=== PATIENT | female | born 1945 | race Caucasian/White ===

== ENCOUNTER → 2023-09-13 10:16 | Outpatient (REF) | payer OTHER, SELFPAY | LOC: RAD 10:16 | PROVIDERS: ATTENDING PHYSICIAN Family Medicine | DX: R74.8 Abnormal levels of other serum enzymes (principal) | CPT/HCPCS: 78306; A9503 ==

== ENCOUNTER 2023-10-27 21:31 | Inpatient (IN) | payer OTHER, SELFPAY ==
[2023-10-27 19:13] VITALS: BP 174/95; BMI 27.9
[2023-10-27 19:58] VITALS: BP 155/119
[2023-10-27 20:24] VITALS: BP 140/100
--- NOTE | 2023-10-27 20:45 | ED.GENMED ---
History of Present Illness
General
Chief Complaint: Breathing Problem
Source: patient
Time Seen by Provider: 10/27/23 19:56
Travel History
Have you had any contact with someone who has COVID-19?: No
Do you have any symptoms of coronavirus? Fever > 100 degrees, chills, cough, shortness of breath, sore throat, loss of taste or smell, muscle aches, or headache?: No
History of Present Illness
History of Present Illness:
78-year-old female with past medical history of hypertension, hyperlipidemia, newly diagnosed atrial fibrillation presenting to the emergency department by request of the primary care physician after patient has been experiencing increased shortness
of breath, exertional dyspnea, palpitations despite being started on metoprolol and Eliquis as an outpatient a couple of weeks ago. Patient has yet to be seen by cardiology noting she has an appointment scheduled for November 13. 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 Primary care physician reported that on labs done as an outpatient today patient had a BNP of greater than 8000
and a acute kidney injury with her creatinine at 1.6.
Past History
Past History
ED Past Medical History: Arrthythmia, HTN, Hypercholesterolemia and Hypothyroidism
ED Past Surgical History: None
Social History
Tobacco: Non-smoker
Alcohol: None
Drug: None
Personal:
Living: with family
Review of Systems
Review of Systems
All Other Systems: ROS reviewed and negative except as documented in HPI and ROS
Phy Exam
Physical Exam
Physical Exam:
GENERAL: Alert , in no apparent distress
EYE: clear conjunctiva
NECK: Supple
ENT: o/p clr, mmm.
CARDIAC: Irregularly irregular, tachycardic
LUNGS: Clear breath sounds bilaterally, no acute respiratory distress,
ABDOMEN: Soft, without focal tenderness, no r/g, no cvat
NEUROLOGICAL: Alert and oriented
SKIN: Warm and dry, skin intact.
MUSCULOSKELETAL: Trace nonpitting ankle edema, well perfused.
PSYCH: Normal and appropriate interaction.
Scores
[id number] Score for Afib Stroke Risk
Age in Years (65=0, 65-74=1, >/=75=2): > or = 75
Sex (Female=+1): Female
Congestive Heart Failure History (Yes=+1): Yes
Hypertension History (Yes=+1): Yes
Stroke/TIA/Thromboembolism History (Yes=+2): No
Vascular Disease History (Yes=+1): No
Diabetes Mellitus (Yes=+1): No
Score: 5
Anticoagulation Recommendations: Recommend anticoagulation (as validated in nonvalvular fib)
Heart Failure Risk
Heart Failure Risk Score: Yes
History of Stroke or TIA: No
History of intubation for respiratory distress: No
Heart rate on ED arrival >/= 110: Yes
SaO2 <90% on arrival on room air: No
HR >/=110 during 3min walk test (or too ill to perform test): Yes
ECG has acute ischemic changes: No
Urea >/=12mmol/L (BUN 33.6mg/dL): Yes
Serum CO2>/=35mmol/L: No
Troponin I or T elevated to OH Level (0.4mg/dL): No
NT-proBNP >/=5,000ng/L (5,000pg/ml): Yes
HF Risk Score: 4
Admission Status: HIGH RISK 26.1% Consider SNF treatment or admission to hospital
Heart Score for Chest Pain Patients
STEMI patient?: Not applicable
Withdrawal Assessment of Alcohol
Withdrawal Assessment Completed?: Not applicable
Course
Orders/Labs/Results
Orders:
Orders
10/27/23 19:56
CR Chest - 2 Views Urgent
Comment:
Reason For Exam: CHF, SOB
10/27/23 19:57
Electrocardiogram (*1) Urgent
Reason for Study: Shortness of Breath
EKG- Treatment ONCE
10/27/23 20:21
Troponin I Urgent
10/27/23 20:29
Furosemide [Lasix] 40 mg IV NOW STA
Metoprolol [Lopressor] 5 mg IV NOW STA
10/27/23 20:54
Magnesium Urgent
10/27/23 21:14
Admit/Transfer Patient As Directed
Co-Sign Provider:
Level of Care: Inpatient admission
Assign to:: Telemetry
Physician / Group: Hospitalist
Diagnosis: Afib
Reason for Telemetry: Arrhythmia
Date to Stop Telemetry: 10/30/23
Time to Stop Telemetry: 11:00
Reason for Hospitalization: Afib, symptomatic
Expected length of stay greater than two midnights?: Yes
ELOS- Estimated Length of Stay in days: 2
I certify the patient meets the requirements for IP care: Yes
10/27/23 21:15
Code Status As Directed
Resuscitation Status: Full Code
10/27/23 21:20
Heparin Protocol- PTT Orders As Directed
PTT per Heparin protocol: -Obtain CBC and baseline PTT - if not already collected.
-Obtain PTT 6 hours from start of infusion. Then, every 6 hours until 2 consecutive
PTT's are therapeutic. Then, PTT Daily.
-With each rate change, obtain PTT every 6 hours until 2 consecutive PTT's are
therapeutic. Then, PTT Daily.
Notify MD As Directed
Notify physician if: PTT is greater than or equal to 200.
10/27/23 21:24
Echo 2D MMode Color/Doppler Routine
Reason for Study: afib, SOB
Weight As Directed
Frequency: Daily
10/27/23 21:30
Heparin 97559 Units/250 ml 25,000 units in 250 ml IV PER PROTOCOL
Weight to be used for heparin protocol in kilograms (kg):: 69
Protocol:: Cardiac Tx/Acute Coronary
PTT Goal Range to be used:: PTT 73 to 111 seconds
Order type:: Initial
INITIAL Infusion Dose (UNITS/KG/hr) & then follow protocol:: 12 units/kg/hr
Infusion Dose in UNITS/hr & then follow protocol (UNITS/hr):: 850
INFUSION RATE in mL/hr & then follow protocol (mL/hr):: 8.5
PTT less than or equal to 64 seconds:: Increase rate by 200 units/hr (+ 2 mL/hr)
PTT 64.1 to 72.9 seconds:: Increase rate by 100 units/hr (+ 1 mL/hr)
PTT 73 to 111 seconds:: Target Range. No change in rate.
PTT 111.1 to 130.9 seconds:: Decrease rate by 100 units/hr (- 1 mL/hr)
PTT 131 to 199.9 seconds:: HOLD for 1 hr. Then decrease rate by 200 units/hr (- 2 mL/hr)
PTT greater than or equal to 200 seconds:: HOLD for 2 hrs & Notify Provider. Then decrease by 200 units/hr (-
2 mL/hr)
Lab follow-up:: Each change, PTT q6h until 2 consecutive are therapeutic. Then PTT
daily.
10/27/23 21:43
Complete Blood Count/No Diff Urgent
Comment: Obtain baseline before beginning heparin infusion if not already collected
PTT Urgent
Comment: Obtain baseline before beginning heparin infusion if not already collected
10/27/23 22:00
Flush (0.9% Sodium Chloride) [Flush (Nss)] See Dose Instructions IV PER PROTOCOL
10/29/23 06:00
Complete Blood Count/No Diff Q2D
Comment: Notify MD if platelet count is <130,000 or decreases by 50% from baseline
10/30/23 11:00
DC Protocol for Telemetry ONCE
10/31/23 06:00
Complete Blood Count/No Diff Q2D
Comment: Notify MD if platelet count is <130,000 or decreases by 50% from baseline
11/02/23 06:00
Complete Blood Count/No Diff Q2D
Comment: Notify MD if platelet count is <130,000 or decreases by 50% from baseline
11/04/23 06:00
Complete Blood Count/No Diff Q2D
Comment: Notify MD if platelet count is <130,000 or decreases by 50% from baseline
11/06/23 06:00
Complete Blood Count/No Diff Q2D
Comment: Notify MD if platelet count is <130,000 or decreases by 50% from baseline
11/08/23 06:00
Complete Blood Count/No Diff Q2D
Comment: Notify MD if platelet count is <130,000 or decreases by 50% from baseline
11/10/23 06:00
Complete Blood Count/No Diff Q2D
Comment: Notify MD if platelet count is <130,000 or decreases by 50% from baseline
11/12/23 06:00
Complete Blood Count/No Diff Q2D
Comment: Notify MD if platelet count is <130,000 or decreases by 50% from baseline
Vital Signs
Initial and Last Documented VS:
Initial Vital Signs
Temp Pulse Resp BP Pulse Ox
98.2 F 75 17 174/95 97
10/27/23 19:13 10/27/23 19:13 10/27/23 19:13 10/27/23 19:13 10/27/23 19:13
Last Documented Vital Signs
Temp Pulse Resp BP Pulse Ox
98.2 F 109 20 160/90 98
10/27/23 19:13 10/27/23 21:54 10/27/23 21:54 10/27/23 21:54 10/27/23 21:54
MDM/Problems Addressed
Differential Diagnosis Includes:
Atrial fibrillation, CHF, valvular dysfunction
MDM/Problems Addressed:
78-year-old female presenting emergency department for evaluation and ultimately admission for suspected CHF likely due to newly diagnosed atrial fibrillation. Patient also has an acute kidney injury. PCP was trying to manage patient via
outpatient methods but unfortunately patient did not seem to be responding well enough to continue this treatment. Patient's heart rate during my exam was persistently between 95 bpm and as high as 125 bpm. She is otherwise well-appearing and in
no acute distress. 40 mg Lasix IV and 5 mg of Lopressor IV were ordered for rate control. Will admit to hospitalist team with plan for cardiology consultation
Chronic conditions affecting care: Arrhythmia
Acute Exacerbation and/or Progression of Chronic Illness: Arrhythmia
*Radiology
Radiology exam reviewed: preliminary read by ED provider (Trace left pleural effusion)
*Pulse Oximetry
Patient hypoxic: no
*Biometrics Experimentalist Interpretation
Rate: tachycardiac
Rhythm: a-fib
*Critical Care Note
Total Time (30-74mins, 75-104mins- exclusive of procedures): Not Applicable
Patient Management
Discussion with other providers: Hospitalist
Escalation/DeEscalation of care consider admission/obs:
Hospitalist is aware and accepts patient for continued evaluation and treatment
ED Attending Note
-
Portions of this chart may have been created with voice recognition software.� Occasional wrong word or��sound alike� substitutions may have occurred due to the inherent limitations of voice recognition software.
Discharge Plan
Departure
Patient Disposition: Admit
Date of Disposition: 10/27/23
Time of Disposition: 20:45
Presentation/result/management discussed w/ accepting MD/DO: Hospitalist
Discharge Problem:
CHF (congestive heart failure), Atrial fibrillation, MIKE (acute kidney injury)
Interventions
Interventions:
*Risk Screen - Suicide Last Done: 10/27/23 19:13
*General Assessment Last Done: 10/27/23 19:13
*Neglect/Abuse Screening Last Done: 10/27/23 19:13
ED- Fall Risk Assessment Last Done: 10/27/23 19:50
*ED COVID-19 Vaccine History Last Done: 10/27/23 19:50
ED- Cardiac Assessment Last Done: 10/27/23 19:50
ED- Pulmonary Assessment Last Done: 10/27/23 19:50
[2023-10-27 20:50] LABS: Troponin I 0.013 ng/ml
[2023-10-27] MEDS: LASIX 40 MG IV (20:57)
[2023-10-27] MEDS: LOPRESSOR 5 MG IV (20:59)
[2023-10-27 21:17] LABS: Magnesium 1.9 mg/dl (1.6-2.3)
--- NOTE | 2023-10-27 21:30 | HPS.HSE ---
Family Physician
-
Family Physician: Sav Valle
Chief Complaint
-
dyspnea
History of Present Illness
78yo F with recent diagnosis of Afib, started Eliquis and Toprol 25mg BID by PCP on 10/24/23 came with persistent SOB. She started to experience symptoms approximately 2 weeks ago. Patient is using alcohol daily - 2 shots of scotch.
Medical History
Past Medical History
Past Medical History: Reports Other
Additional Past Medical History:
See HPI
Past Surgical History: Reports None
Social History
Tobacco: Non-smoker
Alcohol: Daily
Drug: None
Family History
Family History: Not pertinent
Allergies / Home Medications
Allergies reflects when Allergies were last updated in [facility] [facility] [employer] [facility]
Home Medications with original date entered in [facility] [employer] [facility] [employer].
Allergy/Medication List:
Allergies
Allergy/AdvReac Type Severity Reaction Status Date / Time
No Known Allergies Allergy Unverified 10/27/23 19:17
Home Medications
Lactobacillus rhamnosus GG 10 billion cell capsule (Culturelle) 1 cap PO DAILY 10/27/23
apixaban 5 mg tablet 5 mg PO BID 10/27/23
metoprolol succinate 25 mg tablet,extended release 24 hr 25 mg PO BID 10/27/23
Review of Systems
-
A 12 point ROS was completed and negative except as noted: Yes
Respiratory: Reports See HPI
Physical Exam
Vital Signs
Vital Signs
Temp Pulse Resp BP Pulse Ox
98.2 F 105 18 170/100 96
10/27/23 19:13 10/27/23 20:59 10/27/23 20:24 10/27/23 20:59 10/27/23 20:24
Physical Exam
General: Well Developed, Well Nourished and No Apparent Distress
HEENT: NormoCephalic, Anicteric and Moist mucous membranes
Respiratory: Clear; No Wheezes, Rales or Crackles
Cardiac: S1/S2 and Irregular Rhythm
GI: Soft, Non Tender and Non Distended
Musculoskeletal: No Clubbing, No Cyanosis and No Edema
Skin: Warm; No Dry or Rash
Neuro: Awake, Alert, Oriented and AO x 3
Hematologic/Lymphatic: No Lymphadenopathy
Psych: Calm
Laboratory Results
-
Laboratory Results
Troponin I 0.013 ng/ml 10/27/23 20:21
Data Reviewed
-
Diagnostic Radiology: Report Reviewed by me
Impression/Plan
-
A/P:
#dyspnea 2/2 Afib, persistent with poor HR control r/o CHF
#Minimal b/l pleural effusions most likely 2/2 Afib and decreased CO
Lopressor PO scheduled and IV PRN
Check TSH
Telemetry
Cardiology cosult
Anticoagulation
Serial trop
Echo, lasix given in ED, use PRN since no significant over signs of CHF in ED
Daily weight
ProBNP 8080
#Daily alcohol use, unclear if Hx of substance use d/o
Advised to stop using alcohol
watch for withdrawal
#MIKE vs CKD
follow Cr
Heparin drip while establishing baseline. Possible 2/2 low CO
#Elevated ddimer
Unclear cause
US LE will be reasonable, if neg - would do V/Q vs CTA chest depending on further Cr
Already on anticoagulation
DVT ppx - on heparin drip
This encounter required high level of medical decision making due to complexity of PMHX and patient presenting symptoms
[2023-10-27 21:49] LABS: Hematocrit 35.5 % (37.0-47.0); Hemoglobin 12.1 g/dL (12.0-16.0); Mean Corp Hgb Conc. 34.1 g/dL (33.0-37.0); Mean Corpuscular Hgb 31.8 pg (27.0-31.0); Mean Corpuscular Volume 93.4 fL (81.0-99.0); Mean Platelet Volume 10.8 fL (7.4-10.4); Platelet Count 251 10^3/uL (130-400); Red Cell Dist. Width 14.4 % (11.5-14.5); White Blood Cell Count 7.5 10^3/uL (4.8-10.8)
[2023-10-27 21:54] VITALS: BP 160/90
[2023-10-27 22:00] LABS: APTT 35.8 Sec (23.4-35.0)
[2023-10-27] MEDS: HEPARIN 25000 UNITS/250 ML IV (22:43)
[2023-10-27 23:10] VITALS: BP 178/127; BMI 26.8
[2023-10-27 23:30] VITALS: BMI 27.9
[2023-10-28] VITALS (14 sets, daily range): BP systolic 95–168; BP diastolic 68–129; BMI 26.0
[2023-10-28] MEDS: APRESOLINE 10 MG IV (01:09)
--- NOTE | 2023-10-28 01:25 | PTCARENOTE ---
Pt rec'd from ED on stretcher just after 11pm. Awake,alert ambulating freq to bathroom to void post Lasix. At rest ht rate 90 to 130 afib with activity. B/p elevated rechecked several times on both arms including manual. home RX list updated. Pt
reported not having taken her Valsartan tonight. [facility] [employer] contacted for elevated b/p. Hydralazine given. labs redrawn after labor gang supervisor called stating ED labs were hemolyzed.
pt given box lunch. resting in bed with call cruz within reach.
[2023-10-28 01:49] LABS: Troponin I 0.018 ng/ml
[2023-10-28 02:04] LABS: ALT (SGPT) 72 U/L (0-35); AST (SGOT) 73 U/L (14-36); Alkaline Phosphatase 151 U/L (38-126); Blood Urea Nitrogen 39 mg/dl (7-17); Calcium 8.6 mg/dl (8.4-10.2); Carbon Dioxide 20 mmol/L (22-30); Chloride 106 mmol/L (98-107); Estimated Creatinine Clearance 24 ml/min; Glucose 111 mg/dl (70-99); Magnesium 1.9 mg/dl (1.6-2.3); Potassium 3.9 mmol/L (3.5-5.1); Sodium 136 mmol/L (135-145); Total Protein 6.7 g/dl (6.3-8.2); eGFR 30.13
[2023-10-28 02:09] LABS: TSH 1.42 uIU/ml (0.47-4.68)
[2023-10-28 05:25] LABS: % Basophils 1.2 % (0-2); % Eosinophils 3.3 % (0-6); % Immature Granulocytes 0.3 % (0-0.5); % Lymphocytes 33.6 % (20.5-51.1); % Monocytes 10.9 % (1.7-9.3); % Neutrophils 50.7 % (42.2-75.2); Absolute Basophils 0.1 10^3/uL (0-0.2); Absolute Eosinophils 0.3 10^3/uL (0-0.7); Absolute Neutrophils 4.6 10^3/uL (1.4-6.5); Hematocrit 38.8 % (37.0-47.0); Hemoglobin 13.2 g/dL (12.0-16.0); Mean Corpuscular Hgb 31.2 pg (27.0-31.0); Mean Corpuscular Volume 91.7 fL (81.0-99.0); Mean Platelet Volume 10.4 fL (7.4-10.4); Nucleated Red Blood Cells % 0 %; Platelet Count 289 10^3/uL (130-400); Red Blood Cell Count 4.23 10^6/uL (4.20-5.40); Red Cell Dist. Width 14.6 % (11.5-14.5); White Blood Cell Count 9.1 10^3/uL (4.8-10.8)
--- NOTE | 2023-10-28 05:26 | PTCARENOTE ---
Pt up Q 1 hr to void,down 2 kg. b/p remains elevated despite Hydralazine. b/p taken on both arms both upper arm and lower forearm.
--- NOTE | 2023-10-28 05:32 | PTCARENOTE ---
0800 AM dose of Toprol given for elevated b/p
[2023-10-28] MEDS: LOPRESSOR 50 MG PO (05:39)
[2023-10-28 05:45] LABS: APTT 40.4 Sec (23.4-35.0)
[2023-10-28 05:49] LABS: ALT (SGPT) 71 U/L (0-35); AST (SGOT) 69 U/L (14-36); Albumin 4.1 g/dl (3.5-5.0); Alkaline Phosphatase 184 U/L (38-126); Blood Urea Nitrogen 46 mg/dl (7-17); Calcium 9.2 mg/dl (8.4-10.2); Carbon Dioxide 20 mmol/L (22-30); Chloride 103 mmol/L (98-107); Direct Bilirubin 0.1 mg/dl (0.0-0.4); Estimated Creatinine Clearance 21 ml/min; Glucose 106 mg/dl (70-99); Magnesium 1.9 mg/dl (1.6-2.3); Potassium 3.8 mmol/L (3.5-5.1); Sodium 136 mmol/L (135-145); eGFR 30.13
--- NOTE | 2023-10-28 07:42 | CON.CAR ---
Addendum entered and electronically signed by Wilmer Felipe MD 10/28/23 09:42:
I saw and examined the patient.
The Gis Technician's note was reviewed and I agree with the note.
Comment: Briefly, 78-year-old woman newly diagnosed atrial fibrillation who presents following several weeks of progressive dyspnea on exertion and worsening peripheral edema consistent with decompensated heart failure
Plan for IV diuresis to improve her volume status
Rate control of atrial fibrillation for now
Currently on heparin for cardioembolic prophylaxis, was previously on Eliquis as an outpatient
When volume status is improved would consider VON/direct-current cardioversion to restore sinus rhythm
Outpatient ARB has been on hold, given MIKE on CKD would wait for renal function returned to baseline prior to resuming or adding additional GDMT
Original Note:
Consultation
Consultation Request
Date/Time Consultation Requested: 10/27/2023 at 2315
Date/Time Consultation Performed: 10/28/2023 at 0730
Requesting Provider: Dr. Pina
Performing Provider: Dr. Felipe
Reason for Consultation: Afib, CHF
Medical History
-
History of Present Illness:
HPI: Kenisha is an 78 year old female with PMH of hypertension, hyperlipidemia, hypothyroidism, arthritis, and recently diagnosed atrial fibrillation. She presented to [facility] for evaluation of progressively worsening SOB. Symptoms started at the
beginning of the month when she started to notice more SOB, mostly with exertion. She was seen by her PCP on 10/23 and was noted to be in new afib. She was started on anticoagulation with Eliquis and was started on Toprol 25mg BID for rate control.
She then followed up a few days later and was arranged for labwork including D-dimer and proBNP. ProBNP returned elevated at 8080 and she was told to come to the ER for further workup and IV diuresis. D-dimer was also elevated at 0.92. In ER, she
had evidence of volume overload and was started on IV lasix. She reports good urine output overnight with this and her weight has come down 5lbs overnight. She reports some improvement in her breathing this AM. She remains in Afib on review of
telemetry with HRs in the 90s.
PMH:
Newly diagnosed atrial fibrillation
Hypertension
Hyperlipidemia
Hypothyroidism
Arthritis
Anxiety
Past Medical History
Past Medical History: Other (In HPI)
Past Surgical History: None
Social History
Tobacco: Former Smoker
Alcohol: Daily
Drug: None
Employment: Retired
Family History
Family History: Reviewed & Not Pertinent
Allergies / Home Medications
Allergy/AdvReac Type Severity Reaction Status Date / Time
Latex, Natural Rubber Allergy Mild Itching Verified 10/27/23 23:47
Medication Instructions Recorded Confirmed Type
Lactobacillus rhamnosus GG 10 1 cap PO DAILY 10/27/23 10/27/23 History
billion cell capsule (Culturelle)
apixaban 5 mg tablet 5 mg PO BID 10/27/23 10/27/23 History
metoprolol succinate 25 mg 25 mg PO BID 10/27/23 10/27/23 History
tablet,extended release 24 hr
sertraline 25 mg tablet (Zoloft) 25 mg PO DAILY 10/27/23 10/27/23 History
valsartan 80 mg tablet 80 mg PO HS 10/28/23 10/28/23 History
Review of Systems
-
History Source: Patient
All other systems: Negative unless noted
Physical Exam
Vital Signs
Temp Pulse Resp BP Pulse Ox
97.8 F 105 20 165/117 97
10/28/23 04:53 10/28/23 05:15 10/28/23 04:53 10/28/23 04:54 10/28/23 04:53
Lab Results
10/28/23 05:06
10/28/23 05:06
Troponin I 0.018 ng/ml D 10/28/23 01:04
Physical Exam
General: Well Developed, Well Nourished and No Apparent Distress
HEENT: Normocephalic, Anicteric and Moist Mucous Membranes
Respiratory: Clear and Non Labored Respirations
Cardiac: S1/S2 and Irregular Rhythm
Musculoskeletal: No Clubbing, No Cyanosis and Edema
Skin: Warm and Dry
Neuro: AO x 3 and Nonfocal/Grossly Intact
Psych: Calm
Impression / Plan
-
PCP: Dr. Valle
Assurance Senior Manager: Scheduled to see Dr. Mack 11/13.
Impression:
Presented with SOB
Acute HFpEF
Persistent atrial fibrillation
Elevated D-dimer
Hypertension
Hypothyroidism
Hyperlipidemia
Arthritis
Anxiety
Daily ETOH
Echo 05/31/2022: EF 50%, mild MR
Echo 10/28/2023: Study pending
Plan:
-She has had SOB since the beginning of the month and was found to be in new afib by PCP 10/24/2023. Remains in afib at this time on review of telemetry.
-Started on Eliquis 5mg BID for anticoagulation which she has been compliant with. Currently on IV heparin while working up elevated D-dimer. Eventually transition back to Eliquis.
-Continue Toprol 25mg BID for rate control. Follow HRs for now and dose may need to be increased.
-BPs elevated with BP currently 153/113. OP valsartan on hold due to MIKE. Continue Toprol and will give a dose of hydralazine.
-Creat 1.7 this AM. Prior baseline as OP in 08/2023 was 1.17.
-Also with acute heart failure. Will continue diuresis with IV Lasix 40mg daily. Weight down 5lbs overnight, down to 141lbs 10/27.
-Follow daily weights, I&Os. Not on diuretic prior to this admission.
-Echo pending 10/27 to reassess EF. In 2021 EF was low normal at 50%.
-CHF education
-Troponin negative x 2. Check EKG. No chest pain.
-Elevated D-dimer noted. LE US pending. To consider VQ scan versus CT per primary service.
-TSH 1.42. As OP, is on levothyroxine 112mcg daily per PCP note, would restart.
-Discussed daily ETOH use and importance of cutting back/abstaining.
-As OP is on lipitor 80mg daily, follow LFTs and resume as able.
HPI: Kenisha is an 78 year old female with PMH of hypertension, hyperlipidemia, arthritis, and recently diagnosed paroxysmal atrial fibrillation. She presented to [facility] for evaluation of progressively worsening SOB. Symptoms started at the beginning of
the month when she started to notice more SOB, mostly with exertion. She was seen by her PCP on 10/23 and was noted to be in new afib. She was started on anticoagulation with Eliquis and was started on Toprol 25mg BID for rate control. She then
followed up a few days later and was arranged for labwork including D-dimer and proBNP. ProBNP returned elevated at 8080 and she was told to come to the ER for further workup and IV diuresis. D-dimer was also elevated at 0.92. In ER, she had
evidence of volume overload and was started on IV lasix. She reports good urine output overnight with this and her weight has come down 5lbs overnight. She reports some improvement in her breathing this AM. She remains in Afib on review of telemetry
with HRs in the 90s.
Data Reviewed
-
Radiology: Report Reviewed by me
Labs: Labs Reviewed by me
Old Records: Reviewed
[2023-10-28] MEDS: TOPROL XL 25 MG PO ×2 (08:50→19:42)
[2023-10-28] MEDS: FOLVITE 1 MG PO (08:55)
[2023-10-28] MEDS: VITAMIN B1 100 MG PO (08:55)
[2023-10-28] MEDS: APRESOLINE 5 MG IV (08:56)
[2023-10-28] MEDS: LASIX 40 MG IV (09:31)
--- NOTE | 2023-10-28 10:24 | CM ---
Chart reviewed. Patient is independent of ADLS, lives alone in a 2 STH, 0 CAITY, 0 DME. Patient is not current with [facility] and is not interested. Plan is for the patient to return home. CM to follow
[2023-10-28] MEDS: APRESOLINE PO (11:00)
[2023-10-28] MEDS: TYLENOL 650 MG PO (11:47)
--- NOTE | 2023-10-28 11:52 | W.PN.HOSP.TC ---
Today's Communication/Plan
-
Monitor vital signs see plan
IV Lasix
Metoprolol
Continue with heparin drip
trend trops
Assessment / Plan
Assessment / Plan
General: Well Developed, Well Nourished and No Apparent Distress
HEENT: NormoCephalic, Anicteric and Moist mucous membranes
Respiratory: Clear; No Wheezes, Rales or Crackles
Cardiac: S1/S2 and Irregular Rhythm
GI: Soft, Non Tender and Non Distended
Musculoskeletal: No Clubbing, No Cyanosis and No Edema
Skin: Warm; No Dry or Rash
Neuro: Awake, Alert, Oriented and AO x 3
Hematologic/Lymphatic: No Lymphadenopathy
Psych: Calm
dyspnea 2/2 Afib and acute congestive heart failure with reduced ejection fraction
A-fib recently diagnosed outpatient
Continue with IV Lasix, proBNP elevated
Echocardiogram with EF 35 to 40%
TSH wnl
cw lopressor
trend trop
Holding losartan given elevated creatinine, reports no history of CKD
cw heparin gtt; was on eliquis Sales Management Intern
venous US pending
#Daily alcohol use, unclear if Hx of substance use d/o
Advised to stop using alcohol
watch for withdrawal
#renal insufficiency, reports no history of CKD
Monitor; hold valsartan for now
follow Cr; check Ua
Mild elevated LFTs suspect likely secondary to congestion
Monitor
#Elevated ddimer
Unclear cause
US LE will be reasonable, if neg - would do V/Q vs CTA chest depending on further Cr
Already on anticoagulation
DVT ppx - on heparin drip
Anticipated Discharge: > 48 hours
Subjective/Interval History
-
Date of Service: October 28, 2023
denies pain
Objective Data
-
Labs:
Laboratory Results
10/28/23 10/28/2324
01:04 05:06 05:11
WBC 9.1
Hgb 13.2
Hct 38.8
Plt Count 289
APTT 40.4 H
Sodium 136 136
Potassium 3.9 3.8
Chloride 106 103
Carbon Dioxide 20 L 20 L
BUN 39 H 46 H
Creatinine 1.7 H 1.7 H
Glucose 111 H 106 H
Calcium 8.6 9.2
Total Bilirubin 1.0 1.0
AST 73 H 69 H
ALT 72 H 71 H
Alkaline Phosphatase 151 H 184 H
10/28/23
13:15
WBC
Hgb
Hct
Plt Count
APTT Pending
Sodium
Potassium
Chloride
Carbon Dioxide
BUN
Creatinine
Glucose
Calcium
Total Bilirubin
AST
ALT
Alkaline Phosphatase
Vital Signs:
Vital Signs
Temp Pulse Resp BP Pulse Ox
97.9 F 91 20 153/113 96
10/28/23 11:46 10/28/23 07:44 10/28/23 11:46 10/28/23 07:42 10/28/23 11:46
I&O
10/27/23 10/28/23 10/29/23
06:59 06:59 06:59
Intake Total 240 / 240
Output Total 2300 / 2300
Balance -2059 / -2059
[2023-10-28 13:54] LABS: APTT 63.3 Sec (23.4-35.0)
[2023-10-28 14:03] LABS: Troponin I 0.017 ng/ml
[2023-10-28] MEDS: APRESOLINE 25 MG PO ×2 (17:05→22:01)
[2023-10-28 17:19] LABS: Urine Albumin Negative (Neg - Trace); Urine Bilirubin Negative (Negative); Urine Character Clear (Clear); Urine Color Yellow; Urine Glucose Negative (Negative); Urine Ketone Negative (Negative); Urine Leukocyte Negative (Negative); Urine Nitrite Negative (Negative); Urine Occult Blood Negative (Negative); Urine Specific Gravity 1.005 (<1.030); Urine Urobilinogen Negative (Neg - 1+)
[2023-10-28 20:57] LABS: APTT 166.1 Sec (23.4-35.0)
[2023-10-28] MEDS: HEPARIN 25000 UNITS/250 ML IV (22:00)
[2023-10-29] VITALS (8 sets, daily range): BP systolic 95–147; BP diastolic 75–98; BMI 25.5
[2023-10-29 04:45] LABS: ALT (SGPT) 64 U/L (0-35); AST (SGOT) 62 U/L (14-36); Albumin 3.7 g/dl (3.5-5.0); Alkaline Phosphatase 151 U/L (38-126); Blood Urea Nitrogen 40 mg/dl (7-17); Calcium 8.4 mg/dl (8.4-10.2); Carbon Dioxide 23 mmol/L (22-30); Chloride 104 mmol/L (98-107); Estimated Creatinine Clearance 21 ml/min; Glucose 100 mg/dl (70-99); Potassium 3.8 mmol/L (3.5-5.1); Sodium 134 mmol/L (135-145); Total Bilirubin 0.6 mg/dl (0.2-1.3); Total Protein 6.4 g/dl (6.3-8.2); eGFR 30.13
[2023-10-29 04:49] LABS: % Eosinophils 4.2 % (0-6); % Immature Granulocytes 0.4 % (0-0.5); % Lymphocytes 38.5 % (20.5-51.1); % Monocytes 10.7 % (1.7-9.3); % Neutrophils 45.2 % (42.2-75.2); Absolute Basophils 0.1 10^3/uL (0-0.2); Absolute Eosinophils 0.4 10^3/uL (0-0.7); Absolute Lymphocytes 3.2 10^3/uL (1.2-3.4); Absolute Monocytes 0.9 10^3/uL (0.1-0.6); Absolute Neutrophils 3.8 10^3/uL (1.4-6.5); Hematocrit 39.7 % (37.0-47.0); Hemoglobin 13.3 g/dL (12.0-16.0); Mean Corp Hgb Conc. 33.5 g/dL (33.0-37.0); Mean Corpuscular Hgb 30.8 pg (27.0-31.0); Mean Corpuscular Volume 91.9 fL (81.0-99.0); Mean Platelet Volume 10.5 fL (7.4-10.4); Nucleated Red Blood Cells % 0 %; Platelet Count 287 10^3/uL (130-400); Red Blood Cell Count 4.32 10^6/uL (4.20-5.40); Red Cell Dist. Width 14.6 % (11.5-14.5); White Blood Cell Count 8.3 10^3/uL (4.8-10.8)
[2023-10-29] MEDS: SYNTHROID 112 MCG PO (05:33)
[2023-10-29] MEDS: VITAMIN B1 100 MG PO (08:02)
[2023-10-29] MEDS: FOLVITE 1 MG PO (08:03)
[2023-10-29] MEDS: APRESOLINE 25 MG PO (08:03)
[2023-10-29] MEDS: TOPROL XL 25 MG PO (08:03)
[2023-10-29] MEDS: LASIX 40 MG IV (08:04)
--- NOTE | 2023-10-29 08:53 | PTCARENOTE ---
Assumed care of pt from night RN. Pt received awake and alert, Ox3. VSS, CM shows AF 80-90's at rest, but up to 140 with exertion. POX 94% on RA. Heparin infusing at 850 u/hr through LFA, next PTT due at 1200. She denies any pain or discomfort.
Plan is VON/CV on Tuesday.
--- NOTE | 2023-10-29 10:10 | W.PN.CARDCBS ---
Addendum entered and electronically signed by Wilmer Felipe MD 10/29/23 11:32:
I saw and examined the patient.
The Petroleum Inspector Supervisor's note was reviewed and I agree with the note.
Comment: Briefly, 78-year-old woman presenting with new atrial fibrillation with rapid ventricular response and decompensated heart failure
Transthoracic echocardiogram here showed mild to moderately reduced ejection fraction
Volume status is improved with IV diuretics, would continue and follow daily weights and creatinine
Unfortunately due to elevated creatinine we are limited in GDMT that we can offer
Increase Toprol dosing for better heart rate control in A-fib
Plan to uptitrate hydralazine for better blood pressure control/ afterload reduction
Okay to transition from IV heparin back to oral Eliquis from my standpoint
Consider VON/direct-current cardioversion on Monday 10/30
Original Note:
Today's Communication / Plan
-
Continue Toprol 25mg BID
Hydralazine changed to 50mg BID.
Follow creat
Resume Eliquis 2.5mg BID tonight.
May consider VON/CV Tuesday.
Impression / Plan
-
PCP: Dr. Valle
Failure Analysis Technician: Scheduled to see Dr. Mack 11/13.
Impression:
Presented with SOB
Acute HFmrEF
Persistent atrial fibrillation
Elevated D-dimer
Hypertension
Hypothyroidism
Hyperlipidemia
Arthritis
Anxiety
Daily ETOH
Echo 05/31/2022: EF 50%, mild MR
Echo 10/28/2023: EF 35-40%, global hypokinesis, mild to moderate MR, mild to moderate TR, estimated PAP 33 mmHg, severely dilated R atrium
Plan:
-She has had SOB since the beginning of the month and was found to be in new afib by PCP 10/24/2023. Remains in afib at this time on review of telemetry.
-Started on Eliquis 5mg BID for anticoagulation which she has been compliant with. Started on IV heparin on admission, will transition back to Eliquis 2.5mg BID (Age 78, Creat 1.7).
-Continue Toprol for rate control at 25mg BID. HRs remain somewhat elevated. Follow HR with ambulating and may need uptitration.
-Consider VON/CV Tuesday, 10/30.
-OP valsartan on hold due to MIKE. BP improving with Hydralazine 25mg TID, will transition to 50mg BID
-Creat remains elevated at 1.7 this AM. Prior baseline as OP in 08/2023 was 1.17.
-Diuresing with IV lasix for acute heart failure. Volume status improving and breathing improved, likely can transition to PO lasix in AM. Weight down 7lbs this admission to 139lbs on 10/28.
-Follow daily weights, I&Os. Not on diuretic prior to this admission.
-Echo 10/27 noted EF 35-40% with mild to moderate MR. On Toprol and hydralazine for now. Consider addition of nitrate.
-Elevated D-dimer noted. LE US negative for DVT. Considering VQ scan per primary service.
-Discussed daily ETOH use and importance of cutting back/abstaining.
HPI: Kenisha is an 78 year old female with PMH of hypertension, hyperlipidemia, arthritis, and recently diagnosed paroxysmal atrial fibrillation. She presented to [facility] for evaluation of progressively worsening SOB. Symptoms started at the beginning of
the month when she started to notice more SOB, mostly with exertion. She was seen by her PCP on 10/23 and was noted to be in new afib. She was started on anticoagulation with Eliquis and was started on Toprol 25mg BID for rate control. She then
followed up a few days later and was arranged for labwork including D-dimer and proBNP. ProBNP returned elevated at 8080 and she was told to come to the ER for further workup and IV diuresis. D-dimer was also elevated at 0.92. In ER, she had
evidence of volume overload and was started on IV lasix. She reports good urine output overnight with this and her weight has come down 5lbs overnight. She reports some improvement in her breathing this AM. She remains in Afib on review of telemetry
with HRs in the 90s.
Progress Note - Failure Analysis Technician
Subjective
Date of Service: October 29, 2023
Feeling well. Breathing improving.
Objective
Labs:
10/29/23 04:07
10/29/23 04:07
Labs
Hgb 13.3 g/dL (12.0-16.0) 10/29/23 04:07
Hct 39.7 % (37.0-47.0) 10/29/23 04:07
Plt Count 287 10^3/uL (130-400) 10/29/23 04:07
APTT 140.0 Sec (23.4-35.0) H 10/29/23 04:07
Sodium 134 mmol/L (135-145) L 10/29/23 04:07
Potassium 3.8 mmol/L (3.5-5.1) 10/29/23 04:07
BUN 40 mg/dl (7-17) H 10/29/23 04:07
Creatinine 1.7 mg/dL (0.6-1.0) H 10/29/23 04:07
Glucose 100 mg/dl (70-99) H 10/29/23 04:07
Troponins
10/27/23 10/28/23 10/28/23
20:21 01:04 13:33
Troponin I 0.013 0.018 D 0.017
10/28/23
17:30
Troponin I Cancelled
Vital Signs and I&O:
Vital Signs
Temp Pulse Resp BP Pulse Ox
97.4 F 94 18 136/92 94
10/29/23 07:34 10/29/23 08:03 10/29/23 07:34 10/29/23 08:03 10/29/23 08:45
Vital Signs
Temp Pulse Resp BP Pulse Ox
97.4 F 94 18 136/92 94
10/29/23 07:34 10/29/23 08:03 10/29/23 07:34 10/29/23 08:03 10/29/23 08:45
Intake & Output
10/27/23 10/28/23 10/29/23 10/30/23
06:59 06:59 06:59 06:59
Intake Total 240 / 240
Output Total 2300 / 2300 800 / 800
Balance -2059 / -2059 -800 / -800
Physical Exam
Physical Exam
GEN: No distress, awake, alert, oriented x3
HEENT: supple, anicteric, mmm
LUNGS: CTA b/l, no wheezes/rales
CV: irreg, S1/S2, no murmur
EXT: No clubbing, cyanosis, or edema
NEURO: Gross non-focal
SKIN: Warm, dry, no rash
[2023-10-29 12:43] LABS: APTT 56.1 Sec (23.4-35.0)
--- NOTE | 2023-10-29 14:14 | W.PN.HOSP.TC ---
Today's Communication/Plan
-
Monitor vital signs see plan
Continue metoprolol, hydralazine
Eliquis
Monitor renal function
VQ scan
Daughter updated at bedside
Assessment / Plan
Assessment / Plan
General: Well Developed, Well Nourished and No Apparent Distress
HEENT: NormoCephalic, Anicteric and Moist mucous membranes
Respiratory: Clear; No Wheezes, Rales or Crackles
Cardiac: S1/S2 and Irregular Rhythm
GI: Soft, Non Tender and Non Distended
Musculoskeletal: No Edema
Neuro: Awake, Alert, Oriented and AO x 3
Psych: Calm
dyspnea 2/2 Afib and acute congestive heart failure with reduced ejection fraction
A-fib recently diagnosed outpatient
Continue with IV Lasix, proBNP elevated
Echocardiogram with EF 35 to 40%; further workup is limited given elevated creatinine.
Continue with Toprol, uptitrate hydralazine
TSH wnl
Holding losartan given elevated creatinine, reports no history of CKD
No plan for any cardiac intervention, heparin switched to Eliquis
venous US negative
possible cardioversion tuesday
#Daily alcohol use, unclear if Hx of substance use d/o
Advised to stop using alcohol
watch for withdrawal
#renal insufficiency,suspect CKD
Per patient she does not know her baseline creatinine however does report that her PCP told her that it is getting higher
Monitor; hold valsartan for now
follow Cr; Ua negative for UTI
Mild elevated LFTs suspect likely secondary to congestion
Monitor
#Elevated ddimer
Unclear cause; no chest pain
US LE will be reasonable, if neg - would do V/Q vs CTA chest depending on further Cr
Already on anticoagulation
DVT ppx - eliquis
I spent a total of 53 minutes with the patient or on the floor. More than 50% of this time involved counseling and coordination of care.
Anticipated Discharge: > 48 hours
Subjective/Interval History
-
Date of Service: October 29, 2023
denies pain
Objective Data
-
Labs:
Laboratory Results
10/29/23 10/29/23
04:07 12:23
WBC 8.3
Hgb 13.3
Hct 39.7
Plt Count 287
APTT 140.0 H 56.1 H
Sodium 134 L
Potassium 3.8
Chloride 104
Carbon Dioxide 23
BUN 40 H
Creatinine 1.7 H
Glucose 100 H
Calcium 8.4
Total Bilirubin 0.6
AST 62 H
ALT 64 H
Alkaline Phosphatase 151 H
Vital Signs:
Vital Signs
Temp Pulse Resp BP Pulse Ox
98 F 118 18 103/82 95
10/29/23 11:58 10/29/23 12:00 10/29/23 11:58 10/29/23 11:59 10/29/23 11:58
I&O
10/28/23 10/29/23 10/30/23
06:59 06:59 06:59
Intake Total 240 / 240
Output Total 2300 / 2300 800 / 800 300 / 300
Balance -2059 / -0 -800 / -800 -300 / -300
[2023-10-29] MEDS: ELIQUIS 2.5 MG PO (20:30)
[2023-10-29] MEDS: TOPROL XL 37.5 MG PO (20:31)
[2023-10-29] MEDS: APRESOLINE 50 MG PO (22:28)
[2023-10-30 04:40] VITALS: BP 130/94
[2023-10-30 05:02] LABS: % Basophils 1.1 % (0-2); % Eosinophils 3.7 % (0-6); % Immature Granulocytes 0.2 % (0-0.5); % Lymphocytes 42.3 % (20.5-51.1); % Monocytes 12.3 % (1.7-9.3); % Neutrophils 40.4 % (42.2-75.2); Absolute Basophils 0.1 10^3/uL (0-0.2); Absolute Eosinophils 0.3 10^3/uL (0-0.7); Absolute Lymphocytes 3.7 10^3/uL (1.2-3.4); Absolute Monocytes 1.1 10^3/uL (0.1-0.6); Absolute Neutrophils 3.5 10^3/uL (1.4-6.5); Hematocrit 42.8 % (37.0-47.0); Hemoglobin 13.8 g/dL (12.0-16.0); Mean Corp Hgb Conc. 32.2 g/dL (33.0-37.0); Mean Corpuscular Hgb 30.6 pg (27.0-31.0); Mean Corpuscular Volume 94.9 fL (81.0-99.0); Mean Platelet Volume 9.6 fL (7.4-10.4); Nucleated Red Blood Cells % 0 %; Platelet Count 301 10^3/uL (130-400); Red Blood Cell Count 4.51 10^6/uL (4.20-5.40); Red Cell Dist. Width 14.8 % (11.5-14.5); White Blood Cell Count 8.7 10^3/uL (4.8-10.8)
[2023-10-30 05:26] LABS: ALT (SGPT) 52 U/L (0-35); AST (SGOT) 50 U/L (14-36); Albumin 3.9 g/dl (3.5-5.0); Alkaline Phosphatase 136 U/L (38-126); Blood Urea Nitrogen 42 mg/dl (7-17); Calcium 8.8 mg/dl (8.4-10.2); Carbon Dioxide 26 mmol/L (22-30); Chloride 99 mmol/L (98-107); Estimated Creatinine Clearance 24 ml/min; Glucose 92 mg/dl (70-99); Potassium 4.1 mmol/L (3.5-5.1); Sodium 132 mmol/L (135-145); Total Bilirubin 0.8 mg/dl (0.2-1.3); Total Protein 6.6 g/dl (6.3-8.2); eGFR 35.01
--- NOTE | 2023-10-30 06:36 | PTCARENOTE ---
Pt. remained in A-fib overnight, rate 80's-140's with ambulation. No complaints pain/discomfort. Heparin gtt dc'd per order, Eliquis started. Pt. sleeping most of shift.
[2023-10-30 07:10] VITALS: BP 129/94
[2023-10-30] MEDS: SYNTHROID 112 MCG PO (08:22)
[2023-10-30] MEDS: APRESOLINE 50 MG PO ×2 (08:23→19:25)
[2023-10-30] MEDS: VITAMIN B1 100 MG PO (08:23)
[2023-10-30] MEDS: FOLVITE 1 MG PO (08:23)
[2023-10-30] MEDS: ELIQUIS 2.5 MG PO ×2 (08:24→19:26)
[2023-10-30] MEDS: TOPROL XL 37.5 MG PO ×2 (08:25→19:26)
[2023-10-30] MEDS: LASIX 40 MG IV (08:26)
[2023-10-30 08:31] VITALS: BMI 25.4
--- NOTE | 2023-10-30 09:54 | PTCARENOTE ---
Assumed care of pt from night RN. Pt received awake and alert, Ox3. VSS, CM shows AF 90-100's, POX 94% on RA. She denies any pain or discomfort. Awaiting V/Q scan, VON/CV on Tuesday.
--- NOTE | 2023-10-30 12:22 | W.PN.CARDCBS ---
Today's Communication / Plan
-
Tentative VON/direct-current cardioversion on 10/30
Can likely transition to oral Lasix tomorrow
Impression / Plan
-
PCP: Dr. Valle
Division Field Inspector: Scheduled to see Dr. Mack 11/13.
Impression:
Presented with SOB
Acute HFmrEF
Persistent atrial fibrillation
Elevated D-dimer
Hypertension
Hypothyroidism
Hyperlipidemia
Arthritis
Anxiety
Daily ETOH
Echo 05/31/2022: EF 50%, mild MR
Echo 10/28/2023: EF 35-40%, global hypokinesis, mild to moderate MR, mild to moderate TR, estimated PAP 33 mmHg, severely dilated R atrium
Plan:
-SOB since the beginning of the month and was found to be in new afib by PCP 10/24/2023 now presenting in decompensated HF
-Echo 10/27 noted EF 35-40% with mild to moderate MR
-Volume status improved with IV lasix, tentatively plan to transition to PO lasix 10/30
-ARB on hold for MIKE, could consider Entresto if renal function normalizes, but for now cont hydralazine for afterload reduction
-Cont BB
-Eventual consideration for SGLT2 and spironolactone, but will be dictated by her renal function
-Remains in afib at this time on review of telemetry.
-Started on Eliquis 5mg BID for anticoagulation which she has been compliant with - Will transition back to Eliquis 2.5mg BID (Age 78, Creat 1.7). If Cr continues to improve may need full dose however weight is also borderline.
-Continue Toprol for rate control
-Tentative VON/CV Tuesday, 10/30
HPI: Kenisha is an 78 year old female with PMH of hypertension, hyperlipidemia, arthritis, and recently diagnosed paroxysmal atrial fibrillation. She presented to [facility] for evaluation of progressively worsening SOB. Symptoms started at the beginning of
the month when she started to notice more SOB, mostly with exertion. She was seen by her PCP on 10/23 and was noted to be in new afib. She was started on anticoagulation with Eliquis and was started on Toprol 25mg BID for rate control. She then
followed up a few days later and was arranged for labwork including D-dimer and proBNP. ProBNP returned elevated at 8080 and she was told to come to the ER for further workup and IV diuresis. D-dimer was also elevated at 0.92. In ER, she had
evidence of volume overload and was started on IV lasix. She reports good urine output overnight with this and her weight has come down 5lbs overnight. She reports some improvement in her breathing this AM. She remains in Afib on review of telemetry
with HRs in the 90s.
Progress Note - Division Field Inspector
Subjective
Date of Service: October 30, 2023
No acute overnight events. Patient tells me her breathing is comfortable. Feels that her lower extremity edema significantly improved. Heart rate relatively controlled in A-fib on current beta-alysia dose.
Objective
Labs:
10/30/23 04:50
10/30/23 04:50
Labs
Hgb 13.8 g/dL (12.0-16.0) 10/30/23 04:50
Hct 42.8 % (37.0-47.0) 10/30/23 04:50
Plt Count 301 10^3/uL (130-400) 10/30/23 04:50
APTT 56.1 Sec (23.4-35.0) H 10/29/23 12:23
Sodium 132 mmol/L (135-145) L 10/30/23 04:50
Potassium 4.1 mmol/L (3.5-5.1) 10/30/23 04:50
BUN 42 mg/dl (7-17) H 10/30/23 04:50
Creatinine 1.5 mg/dL (0.6-1.0) H 10/30/23 04:50
Glucose 92 mg/dl (70-99) 10/30/23 04:50
Troponins
10/27/23 10/28/23 10/28/23
20:21 01:04 13:33
Troponin I 0.013 0.018 D 0.017
10/28/23
17:30
Troponin I Cancelled
Vital Signs and I&O:
Vital Signs
Temp Pulse Resp BP Pulse Ox
97.6 F 102 20 129/94 94
10/30/23 07:32 10/30/23 08:23 10/30/23 07:32 10/30/23 08:23 10/30/23 09:34
Vital Signs
Temp Pulse Resp BP Pulse Ox
97.6 F 102 20 129/94 94
10/30/23 07:32 10/30/23 08:23 10/30/23 07:32 10/30/23 08:23 10/30/23 09:34
Intake & Output
10/28/23 10/29/23 10/30/23 10/31/23
06:59 06:59 06:59 06:59
Intake Total 240 / 240 480 / 480
Output Total 2300 / 2300 800 / 800 1250 / 1250
Balance -2060 / -2060 -800 / -800 -770 / -770
Physical Exam
Physical Exam
Gen: NAD, AAOx3
HEENT: NC/AT, sclera anicteric
Neck: No JVD
CV: Irregularly irregular
Lungs: CTAB on room air
Abd: S/ND
Ext: Trace LE edema
Skin: Warm, dry
Neuro: Non-focal
[2023-10-30 12:27] VITALS: BP 108/65
--- NOTE | 2023-10-30 13:15 | W.PN.HOSP.TC ---
Today's Communication/Plan
-
Monitor vital signs and see plan
Slowly feeling better, continue with IV Lasix
Continue metoprolol, hydralazine
Plan for cardioversion possibly tomorrow
VQ scan tomorrow
Monitor creatinine; baseline Cr 1.1-1.3; has CKD
Assessment / Plan
Assessment / Plan
General: Well Developed, Well Nourished and No Apparent Distress
HEENT: NormoCephalic, Anicteric and Moist mucous membranes
Respiratory: Clear; No Wheezes, Rales or Crackles
Cardiac: S1/S2 and Irregular Rhythm
GI: Soft, Non Tender and Non Distended
Musculoskeletal: No Edema
Neuro: Awake, Alert, Oriented and AO x 3
Psych: Calm
dyspnea 2/2 Afib and acute congestive heart failure with reduced ejection fraction
A-fib recently diagnosed outpatient
Continue with IV Lasix, proBNP elevated
Echocardiogram with EF 35 to 40%; further workup is limited given elevated creatinine.
Continue with Toprol, uptitrate hydralazine
TSH wnl
Holding losartan given elevated creatinine, patient does have history of CKD, I reviewed her outpatient labs and her creatinine runs from 1.1-1.3
No plan for any cardiac intervention, heparin switched to Eliquis
venous US negative
possible cardioversion tuesday
#Daily alcohol use, unclear if Hx of substance use d/o
Advised to stop using alcohol
watch for withdrawal
#renal insufficiency,suspect CKD
on her outpatient labs, her creatinine runs from 1.1-1.3
Monitor; hold valsartan for now
follow Cr; Ua negative for UTI
Will benefit from nephrology evaluation outpatient
Mild elevated LFTs suspect likely secondary to congestion
Monitor
#Elevated ddimer
Unclear cause; no chest pain
US LE neg; VQ scan 10/30
Already on anticoagulation however 2.5mg Elqquis
DVT ppx - eliquis
Anticipated Discharge: Within 24 hours
Subjective/Interval History
-
Date of Service: October 30, 2023
denies pain
Objective Data
-
Labs:
Laboratory Results
10/30/23
04:50
WBC 8.7
Hgb 13.8
Hct 42.8
Plt Count 301
Sodium 132 L
Potassium 4.1
Chloride 99
Carbon Dioxide 26
BUN 42 H
Creatinine 1.5 H
Glucose 92
Calcium 8.8
Total Bilirubin 0.8
AST 50 H
ALT 52 H
Alkaline Phosphatase 136 H
Vital Signs:
Vital Signs
Temp Pulse Resp BP Pulse Ox
98.2 F 107 20 108/65 94
10/30/23 12:30 10/30/23 12:27 10/30/23 12:30 10/30/23 12:27 10/30/23 12:30
I&O
10/29/23 10/30/23 10/31/23
06:59 06:59 06:59
Intake Total 480 / 480
Output Total 800 / 800 1250 / 1250
Balance -800 / -800 -770 / -770
[2023-10-30 15:36] VITALS: BP 116/83
[2023-10-30 18:36] VITALS: BP 115/82
[2023-10-30 22:41] VITALS: BP 122/90
--- NOTE | 2023-10-31 00:04 | PTCARENOTE ---
Pt. currently in A-fib on the monitor, rate 90's, pt. sleeping. Other vitals stable. NPO for VON/CV in AM. Plan of care discussed with pt., understanding verbalized.
[2023-10-31 04:12] VITALS: BP 116/80
[2023-10-31] MEDS: SYNTHROID 112 MCG PO (04:29)
[2023-10-31 04:39] LABS: % Basophils 0.6 % (0-2); % Eosinophils 4.3 % (0-6); % Immature Granulocytes 0.1 % (0-0.5); % Lymphocytes 35.2 % (20.5-51.1); % Monocytes 11.5 % (1.7-9.3); % Neutrophils 48.3 % (42.2-75.2); Absolute Basophils 0.1 10^3/uL (0-0.2); Absolute Eosinophils 0.3 10^3/uL (0-0.7); Absolute Lymphocytes 2.8 10^3/uL (1.2-3.4); Absolute Monocytes 0.9 10^3/uL (0.1-0.6); Absolute Neutrophils 3.8 10^3/uL (1.4-6.5); Hematocrit 42.3 % (37.0-47.0); Mean Corp Hgb Conc. 33.1 g/dL (33.0-37.0); Mean Corpuscular Hgb 30.9 pg (27.0-31.0); Mean Corpuscular Volume 93.4 fL (81.0-99.0); Mean Platelet Volume 9.8 fL (7.4-10.4); Nucleated Red Blood Cells % 0 %; Platelet Count 288 10^3/uL (130-400); Red Blood Cell Count 4.53 10^6/uL (4.20-5.40); Red Cell Dist. Width 14.6 % (11.5-14.5); White Blood Cell Count 7.9 10^3/uL (4.8-10.8)
[2023-10-31 05:09] LABS: ALT (SGPT) 47 U/L (0-35); AST (SGOT) 46 U/L (14-36); Albumin 3.9 g/dl (3.5-5.0); Alkaline Phosphatase 120 U/L (38-126); Blood Urea Nitrogen 50 mg/dl (7-17); Calcium 8.5 mg/dl (8.4-10.2); Carbon Dioxide 22 mmol/L (22-30); Chloride 103 mmol/L (98-107); Estimated Creatinine Clearance 24 ml/min; Glucose 104 mg/dl (70-99); Potassium 4.3 mmol/L (3.5-5.1); Sodium 131 mmol/L (135-145); Total Bilirubin 0.5 mg/dl (0.2-1.3); Total Protein 6.7 g/dl (6.3-8.2); eGFR 35.01
[2023-10-31 06:00] VITALS: BMI 25.4
[2023-10-31 06:49] VITALS: BP 118/94
--- NOTE | 2023-10-31 07:46 | W.PN.HOSP.TC ---
Addendum entered and electronically signed by Rolf Johnson MD 10/31/23 15:13:
V/Q scan very low probability. Medically stable for discharge.
Total time spent on d/c = 35 min. This included today's physical exam, progress note, review of laboratory and diagnostic data, preparation of discharge documents and prescriptions, and discussions about the pt's hospital course and discharge plan
with the patient and other curator medical museum involved in the patient's care.
Addendum entered and electronically signed by Rolf Johnson MD 10/31/23 10:37:
Hyponatremia
Original Note:
Today's Communication/Plan
-
see bold
Assessment / Plan
Assessment / Plan
Gen: NAD, AAOx3.
Eyes: EOMI, PERRLA, no scleral icterus.
Neck: supple.
CV: RRR with occasional premature beats, +S1/S2, no m/r/g.
Resp: CTAB, no rales, wheezes, or rhonchi.
Abd: +BS, soft, NT, ND
Skin: No rashes.
Neuro: CN 2-12 intact, non-focal.
Psych: Normal mood and affect.
dyspnea 2/2 Afib and acute congestive heart failure with reduced ejection fraction
A-fib recently diagnosed outpatient
-was on IV Lasix, now transitioned to PO Lasix, proBNP elevated
Echocardiogram with EF 35 to 40%; further workup is limited given elevated creatinine.
Continue with Toprol, uptitrate hydralazine
TSH wnl
Holding losartan given elevated creatinine, patient does have history of CKD, I reviewed her outpatient labs and her creatinine runs from 1.1-1.3
No plan for any cardiac intervention, heparin switched to Eliquis
venous US negative
-s/p VON/CV today, post-CV ECG NSR with PACs at 63
#Daily alcohol use, unclear if Hx of substance use d/o
Advised to stop using alcohol
watch for withdrawal
#renal insufficiency,suspect CKD
on her outpatient labs, her creatinine runs from 1.1-1.3
Monitor; hold valsartan for now
follow Cr; Ua negative for UTI
Will benefit from nephrology evaluation outpatient
Mild elevated LFTs suspect likely secondary to congestion
Monitor
#Elevated ddimer
Unclear cause; no chest pain
US LE neg; VQ scan 10/30
Already on anticoagulation however 2.5mg Elqquis
FULL/eliquis
Anticipated Discharge: Within 24 hours
Subjective/Interval History
-
Date of Service: October 31, 2023
No new complaints.
Objective Data
-
Labs:
Laboratory Results
10/31/23
04:24
WBC 7.9
Hgb 14.0
Hct 42.3
Plt Count 288
Sodium 131 L
Potassium 4.3
Chloride 103
Carbon Dioxide 22
BUN 50 H
Creatinine 1.5 H
Glucose 104 H
Calcium 8.5
Total Bilirubin 0.5
AST 46 H
ALT 47 H
Alkaline Phosphatase 120
Vital Signs:
Vital Signs
Temp Pulse Resp BP Pulse Ox
97.8 F 83 16 116/80 97
10/31/23 06:48 10/31/23 06:48 10/31/23 06:48 10/31/23 04:12 10/31/23 06:48
I&O
10/30/23 10/31/23 11/01/23
06:59 06:59 06:59
Intake Total 480 / 480 240 / 240
Output Total 1250 / 1250
Balance -770 / -770 240 / 240
[2023-10-31] MEDS: ELIQUIS 2.5 MG PO (07:52)
[2023-10-31] MEDS: TOPROL XL 37.5 MG PO (07:52)
--- NOTE | 2023-10-31 08:23 | W.PN.CARDCBS ---
Addendum entered and electronically signed by Fco Smith MD 10/31/23 13:32:
I saw and examined the patient.
The REINFORCEMENT MAKER or PA's note was reviewed and I agree with the note.
Comment: General: Well developed, well nourished in NAD.
Neck: Supple, no JVD, HJR, carotids +2 B/L, no bruits bilaterally.
Heart: Non displaced PMI, RRR, no murmurs, No S3, S4, no rubs.
Lungs: Clear to auscultation bilaterally, no wheeze, rhonchi, rubs bilaterally,
normal expiratory phase.
Extremities: No clubbing, cyanosis or edema bilaterally.
Neuro: Grossly nonfocal, awake, alert and oriented x3.
She remains in sinus rhythm status post VON/cardioversion earlier this morning. Stable cardiology status for discharge after VQ scan which will be done for elevated D-dimer. Discussed with patient and daughter at bedside in detail as well as
primary service
Original Note:
Today's Communication / Plan
-
Continue PO lasix
Remains in SR following VON/CV
Follow up arranged
Impression / Plan
-
PCP: Dr. Valle
School Fundraising Director: Scheduled to see Dr. Mack 11/13.
Impression:
Presented with SOB
Acute HFmrEF
Persistent atrial fibrillation
Elevated D-dimer
Hypertension
Hypothyroidism
Hyperlipidemia
Arthritis
Anxiety
Daily ETOH
Echo 05/31/2022: EF 50%, mild MR
Echo 10/28/2023: EF 35-40%, global hypokinesis, mild to moderate MR, mild to moderate TR, estimated PAP 33 mmHg, severely dilated R atrium
Plan:
-She has had SOB since the beginning of the month and was found to be in new afib by PCP 10/24/2023.
-Started on Eliquis 5mg BID for anticoagulation which she had been compliant with.
-Started on IV heparin on admission, subsequently restarted on Eliquis 2.5mg BID (Age 78, Creat 1.7).�
-Continue Toprol for rate control at 37.5 mg BID. s/p successful VON/CV 10/30 w/ denominational of SR.
-OP valsartan on hold due to MIKE. BP improving with Hydralazine 50mg BID.
-Creat improving to 1.5 this AM. Prior baseline as OP in 08/2023 was 1.17.
-Also in decompensated heart failure on arrival.
-Volume status improving and breathing improved, transitioned to PO lasix 40mg daily.
-Weight down 8lbs this admission to 138lbs on 10/30.
-Follow daily weights, I&Os. Not on diuretic prior to this admission.
-Echo 10/27 noted EF 35-40% with mild to moderate MR. On Toprol and hydralazine for now. Consider addition of nitrate.
-Elevated D-dimer noted. LE US negative for DVT. VQ scan today per primary service.
-Discussed daily ETOH use and importance of cutting back/abstaining.
-Follow up arranged, patient and daughter express interest in VN.
HPI: Kenisha is an 78 year old female with PMH of hypertension, hyperlipidemia, arthritis, and recently diagnosed paroxysmal atrial fibrillation. She presented to [facility] for evaluation of progressively worsening SOB. Symptoms started at the beginning of
the month when she started to notice more SOB, mostly with exertion. She was seen by her PCP on 10/23 and was noted to be in new afib. She was started on anticoagulation with Eliquis and was started on Toprol 25mg BID for rate control. She then
followed up a few days later and was arranged for labwork including D-dimer and proBNP. ProBNP returned elevated at 8080 and she was told to come to the ER for further workup and IV diuresis. D-dimer was also elevated at 0.92. In ER, she had
evidence of volume overload and was started on IV lasix. She reports good urine output overnight with this and her weight has come down 5lbs overnight. She reports some improvement in her breathing this AM. She remains in Afib on review of telemetry
with HRs in the 90s.
Progress Note - School Fundraising Director
Subjective
Date of Service: October 31, 2023
Feeling better. Breathing improved and back in SR after VON/CV.
Objective
Labs:
10/31/23 04:24
10/31/23 04:24
Labs
Hgb 14.0 g/dL (12.0-16.0) 10/31/23 04:24
Hct 42.3 % (37.0-47.0) 10/31/23 04:24
Plt Count 288 10^3/uL (130-400) 10/31/23 04:24
APTT 56.1 Sec (23.4-35.0) H 10/29/23 12:23
Sodium 131 mmol/L (135-145) L 10/31/23 04:24
Potassium 4.3 mmol/L (3.5-5.1) 10/31/23 04:24
BUN 50 mg/dl (7-17) H 10/31/23 04:24
Creatinine 1.5 mg/dL (0.6-1.0) H 10/31/23 04:24
Glucose 104 mg/dl (70-99) H 10/31/23 04:24
Troponins
10/28/23 10/28/23
13:33 17:30
Troponin I 0.017 Cancelled
Vital Signs and I&O:
Vital Signs
Temp Pulse Resp BP Pulse Ox
97.8 F 83 16 116/80 97
10/31/23 06:48 10/31/23 06:48 10/31/23 06:48 10/31/23 04:12 10/31/23 06:48
Vital Signs
Temp Pulse Resp BP Pulse Ox
97.8 F 83 16 116/80 97
10/31/23 06:48 10/31/23 06:48 10/31/23 06:48 10/31/23 04:12 10/31/23 06:48
Intake & Output
10/29/23 10/30/23 10/31/23 11/01/23
06:59 06:59 06:59 06:59
Intake Total 480 / 480 240 / 240
Output Total 800 / 800 1250 / 1250
Balance -800 / -800 -770 / -770 240 / 240
Physical Exam
Physical Exam
Gen: NAD, AAOx3
HEENT: NC/AT, sclera anicteric
Neck: No JVD
CV: Reg, no murmur/rubs
Lungs: CTA b/l on room air
Ext: Trace LE edema
Skin: Warm, dry
Neuro: Non-focal
[2023-10-31 10:14] VITALS: BP 105/73
[2023-10-31] MEDS: LASIX 40 MG PO (10:19)
[2023-10-31] MEDS: VITAMIN B1 100 MG PO (10:19)
[2023-10-31] MEDS: FOLVITE 1 MG PO (10:19)
--- NOTE | 2023-10-31 10:24 | PN.CDI ---
CDI
- -
CDI:
Physician Documentation Request
Admit Date: 10/27/23 21:31
Dear Doctor Elizabeth,
Please review the following and provide your response in the progress notes.
Clinical Indicators:
Laboratory Tests
10/28/23 10/28/23 10/29/23
01:04 05:06 04:07
Sodium 136 136 134 L
10/30/23 10/31/23
04:50 04:24
Sodium 132 L 131 L
Pleas clarify in the progress notes, the appropriate diagnosis, if significant, that supports the above abnormalities and additional evaluation, monitoring and/or treatment rendered:
Hyponatremia
Abnormal lab value, clinically insignificant
Other
Use of terms such as suspected, likely, concern for, or probable (associated with a specific diagnosis that is being evaluated, monitored, or treated as if it exists) are acceptable and can be coded in the inpatient setting, when documented at the
time of discharge.
Thank you,
Maria Teresa Gay RN BSN CCDS
CDI Specialist
please contact via tiger text
Please use your independent medical judgment in providing your response.
[2023-10-31] MEDS: APRESOLINE PO (10:57)
--- NOTE | 2023-10-31 11:17 | CM ---
spoke to pt in room, she would like to get VN services at home, she is agreeable to using VN, referral faxed.
[2023-10-31 12:28] VITALS: BP 111/80
[2023-10-31] MEDS: TYLENOL 650 MG PO (14:20)
--- NOTE | 2023-11-03 15:45 | W.DCSUMMARY ---
Discharge Summary
Discharge Data
Date of Admission: 10/27/23
Date of Discharge: 10/31/23
-
Pending Results: No
Hospital Course
Primary diagnoses:
Acute heart failure with reduced ejection fraction
Recently newly diagnosed atrial fibrillation
Secondary diagnoses:
Daily alcohol use
Chronic kidney disease stage 3b
Hyperlipidemia
Hypothyroidism
Consultants:
Cardiology
Imaging:
V/Q scan: Very low probability using the modified PIOPED II criteria.
CXR: No acute cardiopulmonary process.
B/L LE U/S: No evidence of deep venous thrombosis in the bilateral lower extremities as described above.
VON: Normal LV size with moderately reduced systolic function and no regional wall�motion abnormalities.�LVEF is 30 to 35% by visual estimation.�Global diffuse hypokinesis.�Normal RV size with mildly reduced systolic function.�Mild mitral
regurgitation.�Compared to TTE from October 28, 2023, MR is reduced from mild to moderate to�mild.
78-year-old female presented with a chief complaint of dyspnea as outlined in the H&P done on admission. Hospital course per problem list:
Acute HFrEF: The patient presented with shortness of breath that was due to her atrial fibrillation as well as acute heart failure with reduced ejection fraction. Her atrial fibrillation had recently been diagnosed as an outpatient. Her proBNP was
elevated on admission. Echocardiogram showed an ejection fraction of 35 to 40%. Further workup was limited due to elevated creatinine. Patient was diuresed with IV Lasix and then transitioned to oral Lasix. She was placed on beta-alysia as well
as hydralazine that was uptitrated. She was initially on a heparin drip and was transitioned to Eliquis. Patient underwent VON cardioversion on October 31, 2023 and was successfully converted to sinus rhythm.
Discharge Plan
-
Patient Disposition: Home with Home Care
Discharge Diagnosis/Procedures: Shortness of breath due to persistent atrial fibrillation and acute heart failure with reduced ejection fraction
Condition: Good
Diet: Other diet
Additional Diets: Heart healthy, fluid restrict to 1500 cc/day
Driving Restrictions: Not until seen by your Dr
Blood Work: CMP in 1 week, prescription from PCP
Other Services: VN
Specialty Instructions: Weigh Daily- Call MD for wt gain/loss 3 lbs overnight/5 lbs in 1 week
Activity Restrictions/Additional Instructions:
Note, your statin is on hold due to your elevated LFTs. Please have your PCP follow the results of your CMP in 1 week and determine whether you can restart your statin.
Instructions: *[facility] Heart Failure Instructions
Referrals:
[facility] [Outside]
Sav Valle MD [Family Provider] - in less than 1 week
Bang Mack DO [Active] - 11/14/23 1:00 pm (You have a follow up visit with Dr. Mack at the [place] office. Please call with questions. )
Prescriptions:
New
furosemide 40 mg Tablet
40 mg PO DAILY Qty: 30 0RF
thiamine HCl (vitamin B1) 100 mg Tablet
100 mg PO DAILY Qty: 0 0RF
hydralazine 25 mg Tablet
50 mg PO BID Qty: 60 0RF
folic acid 1 mg Tablet
1 mg PO DAILY Qty: 0 0RF
metoprolol succinate 25 mg Tablet Extended Release 24 Hr
37.5 mg PO BID Qty: 90 0RF
Eliquis 2.5 mg Tablet
2.5 mg PO BID Qty: 60 0RF
Continued
Culturelle 10 billion cell Capsule
1 cap PO DAILY
levothyroxine 112 mcg Capsule
112 mcg PO DAILY
Discontinued
metoprolol succinate 25 mg tablet extended release 24 hr
25 mg PO BID
apixaban 5 mg Tablet
5 mg PO BID
Patient Comments:
10/27/2023: Pt recieved samples from her physician
sertraline [Zoloft] 25 mg Tablet
25 mg PO DAILY
valsartan 80 mg Tablet
80 mg PO HS
atorvastatin 80 mg Tablet
80 mg PO HS
Discharge Orders:
Discharge Patient (As Directed); Ordered 10/31/23
Ordered By: Rolf Johnson
Care Plan Goals
Care Plan Goals:
Problem: Readiness for enhanced knowledge related to diagnosis and treatment plan
Goal: Understand your diagnosis and treatment plan needs, including medications if applicable.
Instructions: Know your diagnosis, underlying causes and treatment plan options, including medications if applicable. Consult with your health care team to learn about your diagnosis and treatment plan, including medications if applicable.
Discharge Date and Time
Discharge Date/Time: 10/31/23 17:19
== END 2023-10-31 17:19 | disposition home health service (06) | DRG 308 ==
LOC: IVU 21:31
PROVIDERS: Internal Medicine; Internal Medicine Cardiovascular Disease; Physician Assistant Medical; ADMITTING PHYSICIAN Internal Medicine; ATTENDING PHYSICIAN Internal Medicine; CONSULT PHYSICIAN Internal Medicine Cardiovascular Disease; EMERGENCY PHYSICIAN Student in an Organized Health Care Education/Training Program; FAMILY PHYSICIAN Family Medicine
PROC: 5A2204Z Restoration of Cardiac Rhythm, Single (ICD-10-PCS; 2023-10-31)
PROC: B24BZZ4 Ultrasonography of Heart with Aorta, Transesophageal (ICD-10-PCS; 2023-10-31)
DX: I48.19 Other persistent atrial fibrillation (principal); I50.21 Acute systolic (congestive) heart failure; I13.0 Hypertensive heart and chronic kidney disease with heart failure and stage 1 through stage 4 chronic kidney disease, or unspecified chronic kidney disease; N17.9 Acute kidney failure, unspecified; E87.1 Hypo-osmolality and hyponatremia; N18.9 Chronic kidney disease, unspecified; E03.9 Hypothyroidism, unspecified; E78.00 Pure hypercholesterolemia, unspecified; F41.9 Anxiety disorder, unspecified; I34.0 Nonrheumatic mitral (valve) insufficiency; Z79.01 Long term (current) use of anticoagulants
CPT/HCPCS: 36415; 71046; 78582; 80048; 80053; 81003; 82248; 83735; 83880; 84443; 84484; 85025; 85027; 85379; 85730; 92960; 93005; 93306; 93312; 93320; 93325; 93970; 96374; 96375; 99285; A9540; A9567

== ENCOUNTER → 2024-02-01 15:52 | Outpatient (REF) | payer OTHER, SELFPAY | LOC: RAD 15:52 | PROVIDERS: ATTENDING PHYSICIAN Specialist; FAMILY PHYSICIAN Family Medicine | DX: N18.32 Chronic kidney disease, stage 3b (principal) | CPT/HCPCS: 76770 ==

== ENCOUNTER → 2024-02-15 14:47 | Outpatient (REF) | payer OTHER, SELFPAY | LOC: RCS 14:47 | PROVIDERS: ATTENDING PHYSICIAN Internal Medicine Cardiovascular Disease; FAMILY PHYSICIAN Family Medicine | DX: I48.19 Other persistent atrial fibrillation (principal); I50.21 Acute systolic (congestive) heart failure | CPT/HCPCS: 93306 ==

== ENCOUNTER 2024-04-24 10:15 | Day surgery (SDC) | payer OTHER, SELFPAY ==
--- NOTE | 2024-04-24 12:59 | PTCARENOTE ---
Reviewed discharge instructions with pt. Pt verbalized understanding. Written instruction of all reviewed given to pt. Pt d/c via WC @approx 2599.
== END 2024-04-24 12:31 | disposition home or self-care (01) ==
LOC: CATH 10:15
PROVIDERS: ATTENDING PHYSICIAN Internal Medicine Cardiovascular Disease; FAMILY PHYSICIAN Family Medicine; OTHER PHYSICIAN Internal Medicine Cardiovascular Disease
DX: I08.1 Rheumatic disorders of both mitral and tricuspid valves (principal); I48.19 Other persistent atrial fibrillation; I13.0 Hypertensive heart and chronic kidney disease with heart failure and stage 1 through stage 4 chronic kidney disease, or unspecified chronic kidney disease; I50.22 Chronic systolic (congestive) heart failure; N18.30 Chronic kidney disease, stage 3 unspecified; E78.5 Hyperlipidemia, unspecified; E03.9 Hypothyroidism, unspecified; Z87.891 Personal history of nicotine dependence; Z79.01 Long term (current) use of anticoagulants
CPT/HCPCS: 93312; 93320; 93325

== ENCOUNTER 2024-04-25 08:07 | Day surgery (SDC) | payer OTHER, SELFPAY ==
[2024-04-19 11:15] LABS: % Eosinophils 13.1 % (0-6); % Immature Granulocytes 0.3 % (0-0.5); % Lymphocytes 31.6 % (20.5-51.1); % Monocytes 8.2 % (1.7-9.3); % Neutrophils 45.8 % (42.2-75.2); Absolute Basophils 0.1 10^3/uL (0-0.2); Absolute Lymphocytes 2.4 10^3/uL (1.2-3.4); Absolute Monocytes 0.6 10^3/uL (0.1-0.6); Absolute Neutrophils 3.5 10^3/uL (1.4-6.5); Hematocrit 37.4 % (37.0-47.0); Hemoglobin 12.5 g/dL (12.0-16.0); Mean Corp Hgb Conc. 33.4 g/dL (33.0-37.0); Mean Corpuscular Hgb 30.9 pg (27.0-31.0); Mean Corpuscular Volume 92.3 fL (81.0-99.0); Mean Platelet Volume 8.8 fL (7.4-10.4); Nucleated Red Blood Cells % 0 %; Platelet Count 236 10^3/uL (130-400); Red Blood Cell Count 4.05 10^6/uL (4.20-5.40); Red Cell Dist. Width 12.7 % (11.5-14.5); White Blood Cell Count 7.7 10^3/uL (4.8-10.8)
[2024-04-19 11:24] LABS: INR 1.28; PT 16.1 Sec (11.4-14.6)
[2024-04-19 11:50] LABS: ALT (SGPT) 17 U/L (0-35); AST (SGOT) 32 U/L (14-36); Albumin 4.1 g/dl (3.5-5.0); Alkaline Phosphatase 94 U/L (38-126); Blood Urea Nitrogen 26 mg/dl (7-17); Carbon Dioxide 23 mmol/L (22-30); Chloride 101 mmol/L (98-107); Glucose 80 mg/dl (70-99); Magnesium 1.9 mg/dl (1.6-2.3); Potassium 4.4 mmol/L (3.5-5.1); Sodium 137 mmol/L (135-145); Total Bilirubin 0.4 mg/dl (0.2-1.3); Total Protein 6.7 g/dl (6.3-8.2); eGFR 45.48
[2024-04-19 12:50] VITALS: BMI 23.9
[2024-04-25] VITALS (11 sets, daily range): BP systolic 163–207; BP diastolic 79–93
--- NOTE | 2024-04-25 09:05 | ITS.CL.ABL ---
[facility] - Ablation
Ablation
Procedure Report:
Procedure Date: 04/25/2024
Patient History:
Patient is a pleasant 79-year-old female with a past medical history significant for hypertension, heart failure with reduced ejection fraction with recovered EF, CKD 3B, hypercholesterolemia, and symptomatic paroxysmal atrial fibrillation.
See H&P for complete details.
Indication:
Symptomatic paroxysmal atrial fibrillation
Heart failure with reduced ejection fraction with recovered EF
Arrhythmia Specific History:
Prior Medical Therapies for Rate and Rhythm Control:
X Beta-alysia
[ ] Calcium channel-alysia
[ ] Amiodarone
[ ] Dronederone
[ ] Sotalol
[ ] Flecainide
[ ] Dofetilide
X Options limited by bradycardia
X Options limited by comorbid renal disease
Prior Procedural Therapies for AF/AFL:
X Cardioversion
[ ] Pulmonary Vein Isolation
[ ] Posterior Wall Isolation
[ ] Additional lines (Specify)
[ ] Surgical Denise-MAZE or PVI (Specify)
Procedure Performed:
X AF ablation procedure (45326) -- includes LA/CS pacing, trans-septal, 3D mapping, + ICE
[ ] +IV drug (80633)
[ ] +Other Arrhythmia (09863)
[ ] +Other AF Line/ablation (29231)
Risks and expected recovery has been explained in detail. Alternative options have been explored, and in a shared-decision making fashion we have decided that this was the most appropriate procedure.
Method
NPO status confirmed. Grounding pad applied. Defibrillator pads applied. Continuous surface ECG, pulse oximetry, and blood pressure were monitored. Procedure was performed under general anesthesia, with anesthesia services.
Both groins were clipped, prepped with Chloraprep, and draped in sterile fashion. Time out was called. Local anesthesia administered with bupivacaine. The right and left femoral veins were accessed for catheter placement, using ultrasound guidance,
micro-puncture needle/wire, and modified seldinger technique. 3 sheaths were placed. The following catheters were used:
[ ] Tacticath SE (D/F Curve) ablation catheter
X Viewflex 9Fr ICE catheter
X Inquiry decapolar 6Fr diagnostic catheter
[ ] CRD Hex 6Fr
[ ] Arctic Front Advance Cryoballoon ([ ]28mm[ ]23mm)
[ ] Achieve Advance mapping catheter ([ ]15mm[ ]20mm)
X FlexCath Contour 10 Fr with PulseSelect PFA Catheter
X Advisor HD Grid Mapping Catheter, SE
[ ] Acuson AcuNav 8 Fr ICE catheter
[ ]Other: [ ]
Intracardiac ultrasound (ICE) was carefully advanced into the right atrium to guide sheath placement over a J-wire, catheter placement, guide trans-septal puncture, identify potential complications, identify anatomic structures and ensure proper
contact between ablation catheter and tissue.
Heparin was given prior to trans-septal puncture. Heparin was given to achieve and maintain a target ACT of 300-400 seconds throughout the procedure.
Trans-septal access was performed under ICE guidance. The trans-septal puncture was performed with a SafeSept wire through a Brockenbrough needle assembly through the steerable sheath. The wire was visualized as it entered the LSPV and system
advanced under ICE guidance and fluoroscopy into the LA. The Brockenbrough needle assembly, SafeSept wire and sheath dilator were removed under negative pressure. LA pressure was measured and recorded.
ICE and 3D mapping was performed to identify relevant cardiac structures. A careful 3D map was created to assess for regions of low-voltage and abnormal electrogram signals using HD grid mapping catheter and PulseSelect catheter. Additional mapping
was performed as outlined below.
Prior to ablation, glycopyrrolate was provided. PulseSelect catheter was advanced over J-wire to the ostium of each vein. Pulmonary vein isolation was performed with ostial and antral lesions in a circumferential manner. Contact was visualized via
EAM, ICE, fluoroscopy, and EGM signals. Following completion of ablation lesions, a post-ablation voltage/activation map was performed in sinus rhythm. Entrance and exit block were confirmed for each vein.
Catheter and sheath were removed from the left atrium and post-ablation intracardiac echo evaluation was consistent with pre-ablation with no changes and no pericardial effusion and there is no left atrial thrombus or left ventricle thrombus seen.
Electrophysiology study was performed. Hemostasis was obtained with Vascade for each sheath and with manual pressure. Protamine was used for reversal.
Estimated Blood Loss
5 mL
Complications
None
Fluoroscopy: 7.2 minutes; 12.64 mGy; DAP 3.16
Baseline Intervals:
Rhythm: SR
MD: 184 ms
QRS: 113 ms
QT: 484 ms
QTc: 472 ms
A-A: 1172 ms
R-R: 1172 ms
Post-Procedure Intervals:
MD: 180 ms
QRS: 95 ms
QT: 413 ms
QTc: 461 ms
A-A: 801 ms
R-R: 801 ms
AVWB: 390 ms
AVERP: 600/290 ms
Recommendations
- Bedrest with straight-leg precautions as ordered
- Anticipate same day discharge if patient meeting clinical metrics
- Resume home medications as indicated
- Ok to resume anticoagulation tonight if patient and groin sites stable
- PPI daily for 30 days
- Plan for follow-up in office as scheduled
Bang Mack DO
Clinical [facility]
cc: Sav Valle MD
[2024-04-25 10:51] LABS: ACT-LR - POC 244 Seconds (116-155)
[2024-04-25 11:06] LABS: ACT-LR - POC 282 Seconds (116-155)
[2024-04-25 11:28] LABS: ACT-LR - POC 292 Seconds (116-155)
[2024-04-25 12:04] LABS: ACT-LR - POC 170 Seconds (116-155)
--- NOTE | 2024-04-25 14:40 | W.PN.UPDATE ---
Update Note
Progress Note Update
79 yo WF s/p PVI (same day). She denies cp, sob, blanca diet, voiding, amb w/o dizziness, EKG SR, R fem site c/d/i no HT. BP running high, states a lot of stress at home, she will take her metoprolol and valsartan at home. She will take her Eliquis at
home tonight, we will add PPI for 30 days. Activity restrictions reviewed. She has f/u apt Dr. Mack in 3 mo. He is for d/c home after 3pm.
[2024-04-25 16:04] LABS: ACT-LR - POC > 397 Seconds (116-155)
[2024-04-25 16:04] LABS: ACT-LR - POC > 397 Seconds (116-155)
== END 2024-04-25 15:24 | disposition home or self-care (01) ==
LOC: CATH 08:07
PROVIDERS: ATTENDING PHYSICIAN Internal Medicine Cardiovascular Disease; FAMILY PHYSICIAN Family Medicine
DX: I48.19 Other persistent atrial fibrillation (principal); E03.9 Hypothyroidism, unspecified; F32.A Depression, unspecified; Z79.890 Hormone replacement therapy; I50.22 Chronic systolic (congestive) heart failure; N18.32 Chronic kidney disease, stage 3b; E78.00 Pure hypercholesterolemia, unspecified; I13.0 Hypertensive heart and chronic kidney disease with heart failure and stage 1 through stage 4 chronic kidney disease, or unspecified chronic kidney disease; Z79.899 Other long term (current) drug therapy; Z79.01 Long term (current) use of anticoagulants; Z87.891 Personal history of nicotine dependence
CPT/HCPCS: C1732; C1894; C1733; C1769; C1892; 36415; 80053; 83735; 85025; 85347; 85610; 86850; 86900; 86901; 93005; 93656; C1760